=== PATIENT | male | born 1960 | race Caucasian/White ===

== ENCOUNTER 2022-03-01 08:53 | Emergency (ER) | payer OTHER ==
[~2022-03-01] VITALS: Ht 188 cm; Wt 124.7 kg
== END 2022-03-01 16:07 | disposition short-term general hospital (02) ==
LOC: ED 08:53
DX: S22.41XA Multiple fractures of ribs, right side, initial encounter for closed fracture (principal); S33.30XA Dislocation of unspecified parts of lumbar spine and pelvis, initial encounter; Z20.822 Contact with and (suspected) exposure to COVID-19; V80.010A Animal-rider injured by fall from or being thrown from horse in noncollision accident, initial encounter
CPT/HCPCS: 36415; 71045; 72170; 72193; 80053; 81001; 85025; 87502; 96375; 96376; 99285-25; C9803; J1170; J1885; J7030; Q9967; U0003

== ENCOUNTER 2025-04-28 12:31 | Emergency (ER) | payer OTHER ==
[~2025-04-28] VITALS: Ht 188 cm; Wt 130.0 kg
[2025-04-28] MEDS ORDERED: DIPHTH,PERTUSS(ACELL),TET VAC 0.5 ML SYRINGE IM ONE (12:45)
[2025-04-28] MEDS ORDERED: CEPHALEXIN500 M1 PO (12:55)
[2025-04-28 13:47] VITALS: BP 186/96
== END 2025-04-28 13:42 | disposition home or self-care (01) ==
LOC: ED 12:31
DX: S01.112A Laceration without foreign body of left eyelid and periocular area, initial encounter (principal); S01.511A Laceration without foreign body of lip, initial encounter; I10 Essential (primary) hypertension; Z23 Encounter for immunization; V80.010A Animal-rider injured by fall from or being thrown from horse in noncollision accident, initial encounter
CPT/HCPCS: 12052; 90471; 90715; 99282-25